=== PATIENT | female | born 1955 | race Caucasian/White ===

== ENCOUNTER 2017-05-14 16:09 | Emergency (ER) | payer BC ==
[2017-05-14 18:15] VITALS: BP 114/76
--- NOTE | 2017-05-14 18:28 | RAD ---
INDICATION: Pneumonia COMPARISON: May 04, 2010 TECHNIQUE: PA and lateral dual-energy views were obtained. FINDINGS: Bones/Soft Tissues: There are no acute bony findings. Cardiomediastinal: The cardiomediastinal silhouette is normal. Lungs: There are no infiltrates. Pleura: There are no pleural effusions. Other: None IMPRESSION: NO ACTIVE DISEASE.
[2017-05-14] MEDS ORDERED: Albuterol/Ipratropium NEB.SOL* Albuterol 2.5 MG/Ipratropium 0.5 MG 3 ML INH ONE (18:39)
--- NOTE | 2017-05-14 18:40 | UC ---
Respiratory Complaint HPI - HPI Summary HPI Summary: 61 female presents to with complaints of chest congestion, productive cough, loss of voice and fatigue that has been ongoing for the past 3 weeks and has not been improving. Patient states she gets this once a year, bronchitis/ laryngitis. Patient states she has been taking cough medicine/expectorant. Had a productive cough in the second week however feels she has been unable to produce anything recently. Feels her chest is congested and still experiencing loss of voice. Denies sore throat, nasal congestion, ear ache, and fever/ chills. Went to school nurse who told her she thinks she heard something in right lower lung. Has not tried any other medications. Has been drinking tea with honey. No PMHx other than thyroid disease. - History of Current Complaint Chief Complaint: UCGeneralIllness Stated Complaint: CHEST HUMBLE,COUGH Time Seen by Provider: 05/14/17 17:48 Hx Obtained From: Patient Onset/Duration: Sudden Onset, Lasting Weeks, Still Present, Worse Since Severity Initially: Mild Severity Currently: Moderate Character: Cough: Productive Aggravating Factors: Deep Breaths, Recumbent Position Alleviating Factors: Nothing - robitussin some relief Associated Signs And Symptoms: Positive: URI. Negative: Dyspnea, Fever, Chills , Wheezing, Sinus Discomfort - Allergies/Home Medications Allergies/Adverse Reactions: Allergies Allergy/AdvReac Type Severity Reaction Status Date / Time Erythromycin AdvReac GI Verified 05/14/17 18:15 Home Medications: Home Medications Fluticasone NASAL SPRAY 50MCG* [Flonase NASAL SPRAY 50MCG*] 1 spray BOTH NARES DAILY 05/14/17 [History Confirmed 05/14/17] Metronidazole (Topical) [Metrogel] 1 % EX BID 05/14/17 [History Confirmed ] Mometasone Furoate [Elocon] 0.1 % EX PRN 05/14/17 [History] PMH/Surg Hx/FS Hx/Imm Hx - Additional Past Medical History Additional PMH: Denies DM and HTN. Endocrine History: Hypothyroidism - Surgical History Surgical History: Yes Surgery Procedure, Year, and Place: trach age 3 yo d/t croup - Family History Known Family History: Positive: None - Social History Alcohol Use: Weekly Alcohol Amount: 2-3 weekly Substance Use Type: None Smoking Status (MU): Never Smoked Tobacco - Immunization History Most Recent Influenza Vaccination: none Vaccination Up to Date: Yes Review of Systems Constitutional: Fatigue ENT: Nasal Discharge Respiratory: Cough Cardiovascular: Negative Motor: Negative Neurological: Headache All Other Systems Reviewed And Are Negative: Yes Physical Exam Triage Information Reviewed: Yes Appearance: No Pain Distress, Well-Nourished, Ill-Appearing - appears fatigued Vital Signs: Initial Vital Signs Temp 97 F 05/14/17 18:11 Pulse 54 05/14/17 18:11 Resp 16 05/14/17 18:11 BP 114/76 05/14/17 18:11 Pulse Ox 100 05/14/17 18:11 Vital Signs Reviewed: Yes Eyes: Positive: Conjunctiva Clear ENT: Positive: Pharynx normal, Nasal congestion, TMs normal, Hoarse voice - when speaking, Uvula midline. Negative: Tonsillar swelling, Tonsillar exudate, Trismus, Sinus tenderness Dental: Negative: Percussion Tenderness @, Cervical Lymphadenopathy Neck: Positive: Supple, Nontender, No Lymphadenopathy Respiratory: Positive: Chest non-tender, Normal breath sounds, No respiratory distress, No accessory muscle use, Wheezing - diffuse lower lobes on expiration , Other: - bronchial breath sounds Cardiovascular: Positive: RRR, No Murmur, Pulses Normal, Brisk Capillary Refill - <2 seconds Musculoskeletal: Positive: Strength Intact Neurological: Positive: Alert Skin Exam: Normal UC Diagnostic Evaluation - Laboratory O2 Sat by Pulse Oximetry: 100 - Radiology Xray Interpretation: No Acute Changes - NO ACTIVE DISEASE. Radiology Interpretation Completed By: Radiologist - and myself Respiratory Course/Dx - Course Course Of Treatment: chest xray obtained due to patient PE findings, history of pneumonia and length of symptoms. patient refused duoneb as she wanted to go home and use inhaler instead. xray was negative. appears to be suffering laryngitis, bronchitis. will give inhaler and azithromycin. tessalon pearls/ robitussin. increase fluid intakes and get plenty of rest. aware of worsening signs and symptoms. follow up with pcp to ensure improvement. no concern for other etiology, FB, pulm edema, chf, or pneumonia at this time. patient has had azithromycin in the past and works well for her. - Differential Dx/Diagnosis Differential Diagnosis/HQI/PQRI: Bronchitis, Laryngitis, Lower Resp Infection, Other - URI Provider Diagnoses: acute bronchitis, laryngitis Discharge - Discharge Plan Condition: Stable Disposition: HOME Prescriptions: Albuterol HFA INHALER* [Ventolin HFA Inhaler*] 1 - 2 puff INH Q6H PRN #1 mdi PRN Reason: Sob/Wheezing Azithromycin TAB* [Zithromax TAB (Z-KRISHAN) 250 mg #6 tabs] 2 tab PO .TODAY, THEN 1 DAILY #1 krishan Benzonatate CAP* [Tessalon 100 MG CAP*] 100 mg PO TID #20 cap Patient Education Materials: Azithromycin (By mouth), Laryngitis (ED), Acute Bronchitis (ED) Forms: *Work Release Referrals: Reynaldo Del Castillo MD [Primary Care Provider] - Additional Instructions: Take prescribed medication as directed. Inhaler as needed for SOB /wheezing. Tessalon pearls for coughing. Increase fluid intake and get plenty of rest. Continue tea with honey and symptomatic measures. Rest voice and do salt water gargles multiple times daily. Follow up with PCP. Any new or worsening symptoms please seek medical attention promptly.
== END 2017-05-14 19:18 | disposition home or self-care (01) ==
LOC: UCCORT 16:09
DX: J20.9 Acute bronchitis, unspecified (principal); J04.0 Acute laryngitis; Z88.1 Allergy status to other antibiotic agents; E03.9 Hypothyroidism, unspecified
CPT/HCPCS: 71020; 99212; G0463

== ENCOUNTER 2017-12-18 06:24 | Day surgery (SDC) | payer BC ==
[~2017-12-18 06:24] MED LIST: Buffered Lidocaine 0.9% SYRIN* 5 ML/SYR SYRINGE INTRADERM ONE
[2017-12-18] MEDS ORDERED: Propofol* 10 MG/ML 20 ML BTL IV PUSH ONE (07:19)
[2017-12-18] MEDS ORDERED: fentaNYL* 50 MCG/ML 2 ML VIAL (100 MCG VIAL) ONE (07:19)
[2017-12-18] MEDS ORDERED: Midazolam* 1 MG/ML 2 ML VIAL (2 MG) ONE (07:19)
[2017-12-18] MEDS ORDERED: Bupivacaine 0.5% SDV PF* 30ML VIAL ONE (07:25)
[2017-12-18] MEDS ORDERED: Naloxone* 0.4 MG/ML 1 ML VIAL IV PRN (07:26)
[2017-12-18 08:26] VITALS: BP 126/71
--- NOTE | 2017-12-18 10:41 | OP ---
OPERATIVE REPORT: DATE OF OPERATION: 12/18/17 - ROSALINDA DATE OF : 53 SURGEON: Gordy Robert MD. METAL SORTER: BRENDA Park. ANESTHESIOLOGIST: Dr. Anderson ANESTHESIA: Local MAC. PRE-OP DIAGNOSES: 1. Right de Quervain disease. 2. Right first dorsal compartment tendon sheath nodule. POST-OP DIAGNOSES: 1. Right de Quervain disease. 2. Right first dorsal compartment tendon sheath nodule. OPERATIVE PROCEDURE: 1. Right wrist de Quervain release. 2. Excision of right first dorsal compartment tendon sheath nodule. INDICATIONS: Lizzie is 62, she has chronic de Quervain tenosynovitis with an associated tendon sheath nodule. She tried nonoperative treatments. We talked about the surgical options. She wanted to proceed. We talked about risks and benefits including the risk of persistent pain and risk of irritation of the radial sensory nerve. She wanted to proceed. ESTIMATED BLOOD LOSS: 2 mL. COMPLICATIONS: None. FINDINGS: There is a small nodule in the first dorsal compartment tendon sheath right at the tip of the radial styloid looks like probably small ganglion cyst. DESCRIPTION OF PROCEDURE: Lizzie was seen in the preoperative holding area. We came back to the operating room. We had a time out. I infiltrated the operative area with 0.5% plain Marcaine. The arm was prepped and draped in the usual fashion and time out was performed. I exsanguinated the arm with the Esmarch and the tourniquet was inflated to 250 mmHg. I made a 2-cm transverse incision just proximal to the radial styloid. Full thickness flaps were bluntly raised off the tendon sheath. Ragnell retractors were placed. The nodule in the tendon sheath was identified, excised , ellipsed it out, and handed off this specimen. I then released the first dorsal compartment tendon sheath on its dorsal margin. A large accessory compartment was noted, this was excised in its entirety. The sheath was very thick and chronically inflamed. Once I completed release proximally and distally with the tenotomy scissors, I irrigated out the wound. The skin was closed with 4-0 Monocryl and Steri- Strips. The wound was dressed, the tourniquet deflated, and the patient taken to the recovery room in stable condition. Tourniquet was used at 250 mmHg throughout the case. [id number]/[facility] #: [id number] AMALIA
== END 2017-12-18 08:40 | disposition home or self-care (01) ==
LOC: OREAST 06:24
PROVIDERS: ATTEND Orthopaedic Surgery Hand Surgery
DX: M65.4 Radial styloid tenosynovitis [de Quervain] (principal); M72.8 Other fibroblastic disorders; K21.9 Gastro-esophageal reflux disease without esophagitis; E03.9 Hypothyroidism, unspecified; J30.89 Other allergic rhinitis; K27.9 Peptic ulcer, site unspecified, unspecified as acute or chronic, without hemorrhage or perforation
CPT/HCPCS: 88304; J2250; J2704; J3010